=== PATIENT | male | born 2000 ===

== ENCOUNTER 2021-07-16 13:59 | Emergency (ER) | payer SELFPAY ==
[2021-07-16 14:50] VITALS: BP 102/54
--- NOTE | 2021-07-16 16:02 | XRay Report ---
Right hip-2 views INDICATION: FALL. COMPARISON: None available. IMPRESSION: No acute osseous abnormality. Normal alignment. No significant DJD. Soft tissues are u nremarkable. Signer Name: Jese Awan MD Signed: 07/16/2021 3:58 PM Workstation Name: [id number]
--- NOTE | 2021-07-16 16:02 | XRay Report ---
Right hand-3 views INDICATION: FALL. COMPARISON: None available. IMPRESSION: No acute osseous abnormality. Normal alignment. No significant DJD. Soft tissues are u nremarkable. Signer Name: Jese Awan MD Signed: 07/16/2021 3:57 PM Workstation Name: [id number]
--- NOTE | 2021-07-16 16:02 | XRay Report ---
Lumbar spine-3 views INDICATION: FALL. COMPARISON: None. IMPRESSION: Minimal scoliotic curvature the spine on the frontal image with normal AP alignment on t he lateral view. No significant discogenic DJD or facet arthropathy. No acute osseous or soft tissu e abnormality. Signer Name: Jese Awan MD Signed: 07/16/2021 3:58 PM Workstation Name: [id number]
[2021-07-16] MEDS ORDERED: IBUPROFEN 800 MG TAB PO ONE (22:33)
--- NOTE | 2021-07-16 22:33 | Emergency Department Report ---
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 C/O R HIP, R HAND, LOWER BACK. -LOC. DENIES NECK/ABD PAIN. -: Sudden, hour(s) Fall From: standing When Fall Occurred: unsure Place Fall Occurred: work Loss of Consciousness: none Prolonged Down Time?: no Symptoms Prior to Fall: none Location - Extremities: Right: Hand, Thigh Severity: mild Severity scale (0 -10): 2 Quality: dull Context: tripped/slipped Associated Symptoms: denies - Related Data Allergies Allergy/AdvReac Type Severity Reaction Status Date / Time No Known Allergies Allergy Verified 07/16/21 14:46 ED Review of Systems ROS: Stated complaint: FALL/WRIST/RT HAND INJURY Other details as noted in HPI Comment: Unobtainable due to pts medical conditions ED Past Medical Hx - Past Medical History Previous Medical History?: No Hx Hypertension: No ED Physical Exam - General Limitations: Language Barrier General appearance: alert, in no apparent distress - Head Head exam: Present: atraumatic, normocephalic - Eye Eye exam: Present: normal appearance - ENT ENT exam: Present: mucous membranes moist - Neck Neck exam: Present: normal inspection - Respiratory Respiratory exam: Present: normal lung sounds bilaterally. Absent: respiratory distress - Cardiovascular Cardiovascular Exam: Present: regular rate, normal rhythm. Absent: systolic murmur, diastolic murmur, rubs, gallop - GI/Abdominal GI/Abdominal exam: Present: soft, normal bowel sounds - Rectal Rectal exam: Present: deferred - Expanded Upper Extremity Exam Right Hand Wrist exam: Present: tenderness, swelling - Expanded Lower Extremity Exam Right Lower Leg exam: Present: tenderness - Back Exam Back exam: Present: normal inspection - Neurological Exam Neurological exam: Present: alert, oriented X3 - Psychiatric Psychiatric exam: Present: normal affect, normal mood - Skin Skin exam: Present: warm, dry, intact, normal color. Absent: rash ED Course Vital Signs 07/16/21 14:49 Temperature 98.6 F Pulse Rate 70 Respiratory 16 Rate Blood Pressure 102/54 [Left] O2 Sat by Pulse 100 Oximetry Critical care attestation.: If time is entered above; I have spent that time in minutes in the direct care of this critically ill patient, excluding procedure time. ED Disposition Clinical Impression: Fall, Contusion of right hand, Back pain Disposition: 01 HOME / SELF CARE / HOMELESS Is pt being admited?: No Does the pt Need Aspirin: No Condition: Stable Instructions: Hand Contusion, [id number], Back Injury Prevention, [id number] Referrals: PRIMARY CARE, [Primary Care Provider] - 3-5 Days
== END 2021-07-16 22:54 | disposition home or self-care (01) ==
LOC: ED 13:59
DX: S60.221A Contusion of right hand, initial encounter (principal); M54.50 Low back pain, unspecified; W19.XXXA Unspecified fall, initial encounter; Y93.89 Activity, other specified; Y92.89 Other specified places as the place of occurrence of the external cause; Y99.8 Other external cause status
CPT/HCPCS: 72100; 99283